=== PATIENT | male | born 1995 | race Caucasian/White ===

== ENCOUNTER 2017-11-06 12:13 | Inpatient (IN) | payer OTHER ==
[~2017-11-06] VITALS: Ht 180.3 cm; Wt 61.7 kg
--- NOTE | 2017-11-08 21:15 | NUR ---
INTAKE ASSESSMENT BP: 131/76, HR:97, RR: 16, SpO2:99%, T:98.1 Pt is in stable condition and able to be admitted on the unit. Unit protocols regarding medications and vital signs Q4H were explained. Pt verbalized understanding. Will continue admission upon arrival on the unit.
[2017-11-08] MEDS ORDERED: MIRALAX 17 GM POWD.PACK PO PRN (22:00)
[2017-11-08] MEDS ORDERED: LORAZEPAM 1 MG TABLET PO PRN ×2 (22:00)
[2017-11-08] MEDS ORDERED: ONDANSETRON 4 MG/2 ML VIAL IM PRN (22:00)
[2017-11-08] MEDS ORDERED: LOPERAMIDE HCL 2 MG CAPSULE PO PRN ×2 (22:00)
[2017-11-08] MEDS ORDERED: ONDANSETRON ODT 4 MG TAB.RAPDIS SL PRN (22:00)
[2017-11-08] MEDS ORDERED: BUPRENORPHINE HCL 2 MG TAB.SUBL SL PRN (22:00)
[2017-11-08] MEDS ORDERED: ACETAMINOPHEN 325 MG TABLET PO PRN (22:00)
[2017-11-08] MEDS ORDERED: MAGNESIUM HYDROXIDE 30 ML LIQUID UDC PO PRN (22:00)
[2017-11-08] MEDS ORDERED: MAG HYDROX/AL HYDROX/SIMETH 30 ML LIQUID UDC PO PRN (22:00)
[2017-11-08] MEDS ORDERED: LORAZEPAM 2 MG/1 ML VIAL IM PRN (22:00)
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
[2017-11-08 22:15] LABS: BASOPHILS % (AUTO) 0.5 % (0.0-2.0); EOSINOPHILS # (AUTO) 0.3 K/uL (0.0-0.7); HEMATOCRIT 35.2 % (36.7-47.1); HEMOGLOBIN 12.1 g/dL (12.5-16.3); LYMPHOCYTES # (AUTO) 3.7 K/uL (20.0-40.0); LYMPHOCYTES % (AUTO) 42.6 % (20.5-51.5); MEAN CORPUSCULAR HEMOGLOBIN 29.5 uug (23.8-33.4); MEAN CORPUSCULAR HGB CONC 34 g/dL (32.5-36.3); MEAN CORPUSCULAR VOLUME 85.7 fL (73.0-96.2); MONOCYTES # (AUTO) 0.7 K/uL (2.0-10.0); MONOCYTES % (AUTO) 8.7 % (0.0-11.0); NEUTROPHILS # (AUTO) 3.8 K/uL (1.8-8.9); NEUTROPHILS % (AUTO) 44.2 % (38.5-71.5); PLATELET COUNT (AUTO) 219 K/uL (152-348); WHITE BLOOD COUNT (AUTO) 8.6 K/uL (3.6-10.2)
[2017-11-08 22:38] LABS: ALANINE AMINOTRANSFERASE 26 U/L (16-63); ALKALINE PHOSPHATASE 77 U/L (50-136); AMYLASE 57 U/L (25-115); ASPARTATE AMINOTRANSFERASE 28 U/L (15-37); BILIRUBIN,TOTAL 1.2 mg/dL (0.2-1.0); CARBON DIOXIDE 31 mmol/L (21-32); CHLORIDE 102 mmol/L (98-107); CREATININE 0.9 mg/dL (0.6-1.3); GLUCOSE 57 mg/dL (74-106); LIPASE 168 U/L (73-393); MAGNESIUM 2.1 mg/dL (1.8-2.4); POTASSIUM 3.6 mmol/L (3.5-5.1); TOTAL PROTEIN, SERUM 7.6 g/dL (6.4-8.2); UREA NITROGEN, BLOOD 24 mg/dL (7-18)
[2017-11-08 22:43] LABS: *AMPHETAMINE, URINE POSITIVE (NEGATIVE); *BARBITURATE, URINE NEGATIVE (NEGATIVE); *CANNABINOID, URINE POSITIVE (NEGATIVE); *COCCAINE, URINE NEGATIVE (NEGATIVE); *OPIATE, URINE POSITIVE (NEGATIVE); *PHENCYCLIDINE SCREEN,URINE NEGATIVE (NEGATIVE)
[2017-11-08 23:00] LABS: ETHANOL < 3 MG/DL (0-0)
[2017-11-08] MEDS: diphenhydrAMINE 50 MG CAPSULE PO PRN (23:09)
[2017-11-08] MEDS: METHOCARBAMOL 750 MG TABLET PO PRN (23:09)
--- NOTE | 2017-11-08 23:09 | NUR ---
PRN ZOFRAN, ATIVAN, ROBAXIN, BENADRYL Pt complains of nausea, anxiety, hot/cold sweats, agitation, restlessness, body aches, and difficulty sleeping PRN Zofran, Ativan, Robaxin and Benadryl administered as ordered. CIWA:11, COWS:9. Will monitor effectiveness.
[2017-11-09] VITALS: BP 109/52
--- NOTE | 2017-11-09 | NUR ---
COWS/CIWA DEFERRED COWS/CIWA deferred d/t pt lying in bed with eyes closed noted to be asleep. Breathing is even and unlabored, safety measures in place. Will monitor.
--- NOTE | 2017-11-09 00:09 | NUR ---
PRN ZOFRAN, ATIVAN, ROBAXIN, BENADRYL REASSESSMENT PRN medications effective. Pt is lying in bed with eyes closed and is noted to be asleep. Breathing is even and unlabored, safety measures in place. Will monitor.
[2017-11-09 00:10] LABS: THYROID STIMULATING HORMONE 0.785 mIU/mL (0.358-3.740)
[2017-11-09] MEDS ORDERED: CARB1DRO7 OP (02:43)
[2017-11-09] MEDS ORDERED: CARB15DR OP (02:43)
[2017-11-09 04:00] VITALS: BP 107/58
--- NOTE | 2017-11-09 04:00 | NUR ---
COWS/CIWA DEFERRED 0400 COWS/CIWA deferred d/t pt lying in bed with eyes closed noted to be asleep. Breathing is even and unlabored, safety measures in place. Will monitor.
--- NOTE | 2017-11-09 07:21 | NUR ---
END OF SHIFT Pt is a 22 year old male patient admitted on 11/08/17 for Benzodiazepine and Opiate withdrawal. He remains alert and oriented x4. He was noted with anxiety, restlessness, hot and cold sweats, body aches, difficulty sleeping, and nausea. Pt currently not on taper but has PRN Subtuex and PRN Ativan available. At 2309 he received PRN Zofran, Robaxin, Ativan, and Benadryl. He slept a total of 7 hrs, Intake: 1180 mL, Void: x2, BM;0, COWS:9, CIWA:11. Breathing even and unlabored, safety measures in place. Endorsed.
--- NOTE | 2017-11-09 07:41 | NUR ---
BEGINNING OF SHIFT Patient endorsement report received, patient is a 22 year old male admitted on 11/08/2017, with admitting Dx: bzo/opiate withdrawal, and substance use of methamphetamine. Patient currently continues under close observation, has PRN medications available for s/sx of withdrawal. Per night club manager patient with last cow score of: 9, and last CIWA score of: 11. Patient slept for 7 hours, and received PRN: Zofran, Robaxin, Ativan, and Benadryl. Patient received in bed with eyes closed respirations even and unlabored, responsive to verbal stimuli, will educate regarding plan of care for the day and medication regimen. Safety measures are in place. call light with in reach, will continue to monitor closely.
[2017-11-09 08:28] VITALS: BP 118/74
[2017-11-09] MEDS ORDERED: TUBERCULIN,PURIF.PROT.DERIV. 5 TU/0.1 ML TEST ID ONE (09:00)
[2017-11-09] MEDS: MULTIVITAMINS,THERAPEUTIC TABLET PO SCH (09:14)
--- NOTE | 2017-11-09 09:24 | NUR ---
COW/CIWA ASSESSMENT PRN ATIVAN/SUBUTEX Patient in bed noted disheveled, unkempt, unshaven, unwashed hair, dirty fingernails, and odorous breath. Patient with avoidant eye contact, flat affect, labile mood. Appears preoccupied, and easily overwhelmed. Patient noted exhibiting the following s/sx of withdrawal: facial flushing, difficulty sitting still, restless legs, enlarged pupils, generalized discomfort, myalgias, arthralgias, moist eyes, nasal congestion, nausea, tremors, irritable, gooseflesh, and increase anxiety. Patient with cow score of; 15, and ciwa score of: 17. MD notified. Patient was administered PRN Subutex 4mg Sl and Ativan 2mg PO for s/sx of withdrawal. Will monitor effectiveness of medication. Will continue to monitor.
--- NOTE | 2017-11-09 09:54 | NUR ---
SUBUTEX REASSESSMENT Medication effective, current COW score of: 15, patient reports less anxiety, will continue to monitor.
--- NOTE | 2017-11-09 10:24 | NUR ---
ATIVAN REASSESSMENT Medication effective, current CIWA score of: 15, decrease in anxiety and agitation, will continue to monitor.
[2017-11-09] MEDS ORDERED: 5 DAY TAPER BUPRENORPHINE -SERENITY PROTOCOL SL PRN (11:30)
[2017-11-09] MEDS ORDERED: 5 DAY TAPER OF LORAZEPAM -SERENITY PROTOCOL PO PRN (11:30)
[2017-11-09 12:00] VITALS: BP 126/84
[2017-11-09] MEDS: LORAZEPAM 1 MG TABLET PO SCH ×3 (13:20→20:47)
[2017-11-09] MEDS: BUPRENORPHINE HCL 2 MG TAB.SUBL SL SCH ×3 (13:21→20:47)
[2017-11-09 16:55] VITALS: BP 122/69
--- NOTE | 2017-11-09 18:54 | NUR ---
END OF SHIFT Patient continues under close observation, admitting Dx: opiate/bzo withdrawal. Patient was started on a 5 day Ativan and 5 day Subutex taper during shift. Medications were administered as ordered. Patient noted isolative during shift, preferred to stay in room. Encourage to socialize with others, and participate in group activities, denies SI/HI. Patient also encouraged to participate in therapy sessions to learn new coping skills to prevent relapse. Patient was noted, disheveled, unkempt, unshaven, unwashed hair, dirty fingernails, and odorous breath, encouraged to self groom and maintain personal area. Patient with avoidant eye contact, flat affect, labile mood. Appears preoccupied, and easily overwhelmed. Encouraged to practice self soothing techniques such as progressive muscle relaxation and encouraged to develop coping skills and utilization of non pharmacological interventions. During the shift patient was noted exhibiting the following s/sx of withdrawal: facial flushing, difficulty sitting still, restless legs, yawning, enlarged pupils, generalized discomfort, myalgias, elevated heart rate, arthralgias, moist eyes, nasal congestion, nausea, tremors, irritable, gooseflesh, and increase anxiety. Patient with last cow score of; 16, and ciwa score of: 17. MD notified. Patient was administered PRN Subutex 4mg Sl and Ativan 2mg PO for s/sx of withdrawal, during shift. Received PPD to left F/A. well tolerated. Noted with poor appetite, Patient encouraged to increase fluid intake, food preferences as tolerated. All needs met and rendered, safety measures in lace. Call light with in reach, endorsed to caustic cresylate shift superintendent nurse all pertinent information was discussed.
--- NOTE | 2017-11-09 19:30 | NUR ---
START OF SHIFT Pt is a 22 y/male admitted on 11/08/17 for benzo and opiate withdrawal. Pt was also using methamphetamine. Pt is on a 5 day Ativan and 5 day Subutex taper that started today, tolerating well. Pt received PRN Ativan and Subutex in the morning before taper started. Last COWS 16 and CIWA 17 during day shift. Upon assessment pt presents with anxiety, restlessness, back pain 5/10, body aches, elevated HR, sweats, enlarged pupils, intermittent goosebumps, stomach cramps, agitation, photosensitivity, sensitivity to sounds, and unkempt room. Medications due. Safety measures in place. Call light within reach. Will continue to monitor.
[2017-11-09 20:00] VITALS: BP 112/80
--- NOTE | 2017-11-09 20:00 | NUR ---
COWS 15 AND CIWA 18 Pt presents with anxiety, restlessness, back pain 5/10, body aches, elevated HR, sweats, enlarged pupils, intermittent goosebumps, stomach cramps, agitation, photosensitivity, sensitivity to sounds, and unkempt room.
[2017-11-09] MEDS: METHOCARBAMOL 750 MG TABLET PO PRN (20:47)
[2017-11-09] MEDS: DICYCLOMINE HCL 20 MG TABLET PO PRN (20:58)
--- NOTE | 2017-11-09 20:58 | NUR ---
PRN ROBAXIN AND BENTYL ADMINISTRATION Pt reports generalized body aches and back ache. Robaxin administered at 2046. Pt complains of stomach cramps with nausea. Refuses Zofran for nausea d/t tolerating fluids and snacks. Bentyl administered at 2057. Safety measures in place. Call light within reach. Will continue to monitor.
--- NOTE | 2017-11-09 21:58 | NUR ---
PRN CLARA AND KERRY REASSESSMENT Pt reports body aches and stomach cramps are now tolerable. Safety measures in place. Call light within reach. Will continue to monitor.
[2017-11-10] VITALS: BP 116/87
--- NOTE | 2017-11-10 | NUR ---
COWS/CIWA DEFERRED Pt laying in bed with eyes closed, COWS/CIWA deferred, to be assessed when pt is awake per orders. Respirations even and unlabored. Safety measures in place. Call light within reach. Will continue to monitor.
[2017-11-10 04:00] VITALS: BP 109/83
--- NOTE | 2017-11-10 07:10 | NUR ---
END OF SHIFT Pt is a 22 y/male admitted on 11/08/17 for benzo and opiate withdrawal. Pt was also using methamphetamine. Pt is on a 5 day Ativan and 5 day Subutex taper that started on 11/09/17, tolerating well. Pt presented with anxiety, restlessness, back pain, body aches, elevated HR, sweats, enlarged pupils, intermittent goosebumps, stomach cramps, nausea, agitation, photosensitivity, sensitivity to sounds, and unkempt room. Scheduled medications and PRN Robaxin and Bentyl administered, effective in S/S of withdrawal AEB CIWA 14 lowered to CIWA 12 during shift. Pt slept 9 hours. Intake 1180 ml, void x 3, stool x 0. Safety measures in place. Call light within reach. Pts needs have been met. Endorsed to day shift nurse. Addendum: 11/10/17 at 0711 by CHRISTI VUONG RN CORRECTION: Scheduled medications and PRN Robaxin and Bentyl administered, effective in S/S of withdrawal as verbalized by pt. Last COWS 15 and CIWA 18.
--- NOTE | 2017-11-10 07:22 | NUR ---
BEGINNING OF SHIFT Patient received in bed with eyes closed respirations even and unlabored, responsive to verbal stimuli. Safety measures are in place. Endorsement report received, from shift mechanic nurse, all pertinent information discussed. Admitting Dx: bzo/opiate withdrawal, and substance use of methamphetamine. Patient currently continues under close observation, Ongoing Ativan and Subutex taper as ordered, scheduled to begin day 2 of taper. Per shift mechanic patient with last cow score of: 15, and last CIWA score of: 18. Patient slept for 9 hours, and received PRN: Bentyl, and Robaxin, per shift mechanic medications effective. Will educate regarding plan of care for the day and medication regimen. Patient slept for 9hours. Safety measures are in place. call light with in reach, will continue to monitor closely.
[2017-11-10 08:10] LABS: HEPATITIS B SURFACE AG Negative (Negative)
[2017-11-10 08:40] VITALS: BP 112/61
[2017-11-10] MEDS: MULTIVITAMINS,THERAPEUTIC TABLET PO SCH (08:45)
[2017-11-10] MEDS: LORAZEPAM 1 MG TABLET PO SCH ×3 (08:45→21:33)
[2017-11-10] MEDS: BUPRENORPHINE HCL 2 MG TAB.SUBL SL SCH ×3 (08:45→21:40)
--- NOTE | 2017-11-10 09:00 | NUR ---
COW/CIWA ASSESSMENT Patient in bed noted with flat affect, labile mood. noted exhibiting the following s/sx of withdrawal: diaphoresis, difficulty sitting still, fidgety, enlarged pupils, clammy skin, facial flushing, bone and joint aches, nasal congestion, moist eyes, abdominal cramps, irritability, anxiety, sensitivity to light and to noise, nausea, generalized discomfort, and emotional volatility. patient with COW score of: 15, and CIWA score of: 19. MD notified. Will continue to monitor.
--- NOTE | 2017-11-10 10:14 | NUR ---
Therapist prompted client to attend group therapy.
[2017-11-10 13:23] VITALS: BP 128/77
--- NOTE | 2017-11-10 13:25 | NUR ---
COW/CIWA ASSESSMENT Patient noted exhibiting the following s/sx of withdrawal: diaphoresis, difficulty sitting still, fidgety, enlarged pupils,elevated heart rate, clammy skin, facial flushing, bone and joint aches, nasal congestion, moist eyes, abdominal cramps, irritability, anxiety, sensitivity to light and to noise, nausea, generalized discomfort, and emotional volatility. patient with COW score of: 16, and CIWA score of: 19. Will continue to monitor.
--- NOTE | 2017-11-10 16:43 | NUR ---
COW/CIWA ASSESSMENT continues to present with the following: diaphoresis, difficulty sitting still, fidgety, enlarged pupils,elevated heart rate, clammy skin, facial flushing, bone and joint aches, nasal congestion, moist eyes, abdominal cramps, irritability, anxiety, sensitivity to light and to noise, nausea, generalized discomfort, and emotional volatility. patient with COW score of: 16, and CIWA score of: 19. Will continue to monitor. safety measures are in place.
[2017-11-10 16:45] VITALS: BP 127/79
--- NOTE | 2017-11-10 19:05 | NUR ---
END OF SHIFT Patient alert and oriented x4, Dx: opiate/bzo withdrawal, continues on 5 day Ativan and 5 day Subutex taper during shift, is currently on day 2 of taper. During shift patient noted exhibiting the following s/sx of withdrawal: diaphoresis, difficulty sitting still, fidgety, enlarged pupils,elevated heart rate, clammy skin, facial flushing, bone and joint aches, nasal congestion, moist eyes, abdominal cramps, irritability, anxiety, sensitivity to light and to noise, nausea, generalized discomfort, and emotional volatility. patient with last COW score of: 15, and last CIWA score of: 19. Received no PRN medications during shift, all scheduled medications were administered as ordered. Patient was noted, disheveled, unkempt, unshaven, unwashed hair, dirty fingernails, and odorous breath, encouraged to self groom and maintain personal area. Patient with avoidant eye contact, flat affect, labile mood. Encouraged to develop coping skills and utilization of non pharmacological interventions. Patient with episode of increase anxiety, was with anxiety, noted heavily crying, body posture tense, noted tightly squeezing water bottle, patient with rapid, heavily breaths, occurred after group therapy, patient was calm and less anxious after speaking privately with therapist, therapist able to calm patient and provide with redirection. Patient encouraged to increase fluid intake, food preferences as tolerated. All needs met and rendered, safety measures in place. Call light with in reach, endorsed to night assistant nurse all pertinent information was discussed. Addendum: 11/10/17 at 1909 by CHRISTEL WEBB LVN ERROR IN CHARTING- WRONG PATIENT, DISREGARD NOTE ABOVE.
--- NOTE | 2017-11-10 19:09 | NUR ---
END OF SHIFT Patient alert and oriented x4, Dx: opiate/bzo withdrawal, continues on 5 day Ativan and 5 day Subutex taper during shift, is currently on day 2 of taper. During shift patient noted exhibiting the following s/sx of withdrawal: diaphoresis, difficulty sitting still, fidgety, enlarged pupils,elevated heart rate, clammy skin, facial flushing, bone and joint aches, nasal congestion, moist eyes, abdominal cramps, irritability, anxiety, sensitivity to light and to noise, nausea, generalized discomfort, and emotional volatility. patient with last COW score of: 15, and last CIWA score of: 19. Received no PRN medications during shift, all scheduled medications were administered as ordered. Patient was noted, disheveled, unkempt, unshaven, unwashed hair, dirty fingernails, and odorous breath, encouraged to self groom and maintain personal area. Patient with avoidant eye contact, flat affect, labile mood. Encouraged to develop coping skills and utilization of non pharmacological interventions. Patient encouraged to increase fluid intake, food preferences as tolerated. All needs met and rendered, safety measures in place. Call light with in reach, endorsed to night order selector nurse all pertinent information was discussed.
--- NOTE | 2017-11-10 19:30 | NUR ---
Start of shift note Received report from day shift nurse. Patient is a 22 year old f admitted for Benzo/Opiate withdrawal. Patient is on 2nd day of his 5 day Subutex and 5 day Ativan taper. Patient did not require PRN medication. Last COWS 16 and CIWA 19. Patient lying in bed with eyes closed. Room dirty and clothes thrown on floor. Patient woke up. Patient presents with flat affect, disheveled, anxious, sweating, abdominal cramping, muscles aches, stuffy nose, sensitive to light/sounds and piloerection. Encourage fluids. Safety measures in place. Call light in reach. Will continue to monitor.
[2017-11-10 20:00] VITALS: BP 114/68
--- NOTE | 2017-11-10 20:00 | NUR ---
COWS and CIWA assessment Patient anxious, sweating, abdominal cramping, stuffy nose, sensitive to light and sounds , piloerection and c/o muscles aches. COWS 16 and CIWA 15.
[2017-11-10] MEDS: METHOCARBAMOL 750 MG TABLET PO PRN (21:32)
--- NOTE | 2017-11-10 21:32 | NUR ---
PRN Robaxin administration Patient c/o muscle aches. Will monitor for effectiveness
--- NOTE | 2017-11-10 22:32 | NUR ---
PRN Robaxin re-assessment Patient states Robaxin helpful and effective. Will continue to monitor.
--- NOTE | 2017-11-11 | NUR ---
COWS and CIWA deferred Patient lying in bed with eyes closed. VS refused. Respiration even and unlabored. Will continue to monitor.
[2017-11-11 04:00] VITALS: BP 103/62
--- NOTE | 2017-11-11 05:09 | NUR ---
COWS and CIWA assessment Patient anxious, restless and c/o body aches. Will monitor for effectiveness . COWS 10 and CIWA 8.
--- NOTE | 2017-11-11 05:10 | NUR ---
PRN Vistaril and Motrin administration Patient c/o anxiety and body aches. Will monitor for effectiveness
[2017-11-11] MEDS: HYDROXYZINE PAMOATE 25 MG CAPSULE PO PRN (05:12)
[2017-11-11] MEDS: IBUPROFEN 600 MG TABLET PO PRN (05:12)
--- NOTE | 2017-11-11 06:12 | NUR ---
PRN Vistaril and Motrin re-assessment Patient lying in bed with eyes closed. Respiration even and unlabored. No facial grimacing. Will continue to monitor
--- NOTE | 2017-11-11 07:05 | NUR ---
End of shift note Patient slept 10 hours. Fluid intake 300 ml. Voided x 1. No BM. Monitored patient throughout shift. Patient presented with flat affect, disheveled, anxious, sweating, abdominal cramping, muscles aches, stuffy nose, sensitive to light and sounds and piloerection . Scheduled medication and taper given as ordered. PRN Robaxin given for body aches. At 0510, patient woke up anxious and c/o body aches. PRN Motrin and Vistaril. Encouraged fluids. Safety measures in place. Call light in reach. Will continue to monitor. Last COWS 10 and CIWA 8 .
--- NOTE | 2017-11-11 07:30 | NUR ---
START OF SHIFT NOTE Received report from night nurse 22 year old male admitted for Benzo, Heroin, Meth withdrawal and continues on 5 Ativan, 5 days Subutex taper tolerating well. Per endorsement patient received PRN Motrin,Vistaril, Robaxin tolerated well, slept for 10 hours and last CIWA-8, COWS-10. Received patient with blunt facial expression, anxious, agitated, bilateral hand tremors, unkempt room, dirty room linens on the floor, racing thoughts. Breathing normal no SOB noted. Skin intact warm and dry to touch. All safety measures in place call light within reach. Will cont to monitor.
[2017-11-11 08:00] VITALS: BP 117/66
[2017-11-11] MEDS ORDERED: BUPRENORPHINE HCL 2 MG TAB.SUBL SL SCH (09:00)
[2017-11-11] MEDS: MULTIVITAMINS,THERAPEUTIC TABLET PO SCH (09:10)
[2017-11-11] MEDS: LORAZEPAM 1 MG TABLET PO SCH ×4 (09:10→21:12)
--- NOTE | 2017-11-11 09:10 | NUR ---
CIWA/COWS ASSESSMENT CIWA-10, COWS-11, Patient presented with anxiety, agitation, restless, diaphoresis, light headed, body aches, sweats, bilateral hand tremors, patient was given schedule medication. Will cont to monitor.
[2017-11-11 12:00] VITALS: BP_SYST 120; BP_SYST 142; BP_DIAS 87; BP_DIAS 91
--- NOTE | 2017-11-11 12:00 | NUR ---
CIWA/COWS ASSESSMENT CIWA-11, COWS-12, Patient continues to exhibited s/s of withdrawal such as anxiety, agitation, restless, chills, diaphoresis, body aches, sweats, bilateral hand tremors, patient continues with his taper. Will cont to monitor.
[2017-11-11] MEDS: BUPRENORPHINE HCL 2 MG TAB.SUBL SL SCH ×2 (14:41→21:12)
[2017-11-11 16:00] VITALS: BP 128/85
--- NOTE | 2017-11-11 16:00 | NUR ---
CIWA/COWS ASSESSMENT CIWA-12, COWS-12, Patient continues to exhibited s/s of withdrawal such as anxiety, agitation, restless, runny nose, tearing eyes, diaphoresis, body aches, sweats, bilateral hand tremors, patient continues with his taper. Will cont to monitor.
--- NOTE | 2017-11-11 19:08 | NUR ---
END OF SHIFT NOTE Gave report to night nurse, 22 year old male patient admitted for Benzo, Heroin, Meth withdrawal and continues with Ativan and Subutex taper tolerated. Patient presented with labile facial expression, anxiety, agitation, restless, muscle spasms, headache, light headed, sweats, bilateral hand tremors. Patient was given schedule medications and did not required any PRN'S. Last CIWA-12, COWS-12. Patient noted attending groups and activities. All safety measures in place, call light within reach. Patient endorse to night nurse in stable condition.
--- NOTE | 2017-11-11 19:30 | NUR ---
START OF SHIFT Pt is a 22 y/o male admitted on 11/08/17 for benzo and opiate withdrawal. Pt was also using methamphetamine. Pt is on a 5 day Ativan and Subutex taper, tolerating well. Last CIWA 12 and COWS 12 and no PRNs administered during day shift. Upon assessment pt presents with anxiety, restlessness, agitation, flushed skin, intermittent sweats, chills, stomach cramps, intermittent nausea, body aches, headache, increased HR, photosensitivity and unkempt room. Medications due. Safety measures in place. Call light within reach. Will continue to monitor.
[2017-11-11 20:00] VITALS: BP 121/82
--- NOTE | 2017-11-11 20:00 | NUR ---
COWS 13 AND CIWA 12 Pt presents with anxiety, restlessness, agitation, flushed skin, intermittent sweats, chills, stomach cramps, intermittent nausea, body aches, headache, increased HR, photosensitivity and unkempt room. Pt requesting smoke break.
[2017-11-11] MEDS ORDERED: TRAZODONE 50 MG TABLET PO ONE (20:45)
[2017-11-11] MEDS: DICYCLOMINE HCL 20 MG TABLET PO PRN (21:12)
[2017-11-11] MEDS: METHOCARBAMOL 750 MG TABLET PO PRN (21:12)
--- NOTE | 2017-11-11 21:12 | NUR ---
PRRajwinder ELIZABETH AND BENTYL ADMINISTRATION Pt reports body aches and stomach cramps. Safety measures in place. Call light within reach. Will continue to monitor.
--- NOTE | 2017-11-11 22:12 | NUR ---
PRN CLARA AND COLEYL REASSESSMENT Pt reports body aches and stomach cramps reduced to tolerable level. Safety measures in place. Call light within reach. Will continue to monitor.
--- NOTE | 2017-11-12 | NUR ---
COWS/CIWA DEFERRED AND VITALS REFUSED Pt laying in bed with eyes closed, COWS/CIWA deferred, to be assessed when pt is awake per orders. Vitals refused. Respirations even and unlabored. Safety measures in place. Call light within reach. Will continue to monitor.
--- NOTE | 2017-11-12 07:01 | NUR ---
END OF SHIFT Pt is a 22 y/o male admitted on 11/08/17 for benzo and opiate withdrawal. Pt was also using methamphetamine. Pt is on a 5 day Ativan and Subutex taper, tolerating well. Pt presented with anxiety, restlessness, agitation, flushed skin, intermittent sweats, chills, stomach cramps, intermittent nausea, body aches, headache, increased HR, photosensitivity and unkempt room. Scheduled medications and PRN Robaxin and Bentyl administered, effective in S/S of withdrawal as verbalized by pt. Last COWS 13 and CIWA 12. Pt slept 7 hours. Intake 1300 ml, void x 2, stool x 0. Safety measures in place. Call light within reach. Pts needs have been met. Endorsed to day shift nurse.
--- NOTE | 2017-11-12 07:36 | NUR ---
START OF SHIFT NOTE Received report from night nurse 22 year old male admitted for Benzo, Heroin, Meth withdrawal and continues on 5 Ativan, 5 days Subutex taper tolerating well. Per endorsement patient received PRN Benadryl,Robaxin tolerated well, slept for 7 hours and last CIWA-12, COWS-13. Received patient with blunt facial expression, anxious, agitated, sweats, chills, bilateral hand tremors, unkempt room, blocking thoughts. Breathing normal no SOB noted. Skin intact warm and dry to touch. All safety measures in place call light within reach. Will cont to monitor.
[2017-11-12 08:00] VITALS: BP 131/85
[2017-11-12] MEDS: BUPRENORPHINE HCL 2 MG TAB.SUBL SL SCH ×3 (08:35→21:45)
[2017-11-12] MEDS: MULTIVITAMINS,THERAPEUTIC TABLET PO SCH (08:35)
[2017-11-12] MEDS: LORAZEPAM 1 MG TABLET PO SCH ×3 (08:35→21:45)
--- NOTE | 2017-11-12 08:35 | NUR ---
CIWA/COWS ASSESSMENT Patient presented with blunt facial expression, anxiety, agitation, restless, diaphoresis, light headed, body aches, sweats, bilateral hand tremors, CIWA-11, COWS-11 noted. patient received his schedule medication. Will cont to monitor.
[2017-11-12 12:00] VITALS: BP 136/93
--- NOTE | 2017-11-12 12:00 | NUR ---
CIWA/COWS ASSESSMENT Patient continues to presents with anxiety, agitation, restless, diaphoresis, light headed, body aches, sweats, runny nose, bilateral hand tremors, CIWA-10, COWS-10 noted. Patient is due for scheduled medications. Will cont to monitor.
--- NOTE | 2017-11-12 12:43 | NUR ---
Therapist prompted client to attend group therapy sessions.
[2017-11-12 16:00] VITALS: BP 130/86
--- NOTE | 2017-11-12 16:00 | NUR ---
CIWA/COWS ASSESSMENT Patient is anxious, agitated, sweating, runny nose, sensitive to light and sound, bilateral hand tremors, CIWA-11, COWS-11 noted. Patient continues with his taper. Will cont to monitor.
--- NOTE | 2017-11-12 19:06 | NUR ---
END OF SHIFT NOTE Gave report to night nurse, 22 year old male patient admitted for Benzo, Heroin, Meth withdrawal and continues with Ativan and Subutex taper tolerated well. Patient presented with sad facial expression, anhedonia, anxiety, agitation, restless, sweats, emotional volatility, general body discomfort, bilateral hand tremors. Patient was given schedule medications and did not received any PRN'S. Patient noted avoidant eye contact, unkempt, odors breath, disheveled. Last , . Encourage patient to attend groups and activities to learn new coping skills. Patient noted attending groups and activities. Encourage PO fluids as tolerated. All needs attended. All safety measures in place, call light within reach. Patient endorse to night nurse in stable condition. Addendum: 11/12/17 at 1911 by KRISTINE LUNA LVN CORRECTION-
--- NOTE | 2017-11-12 19:30 | NUR ---
START OF SHIFT Pt is a 22 y/o male admitted on 11/08/17 for benzo and opiate withdrawal. Pt was also using methamphetamine. Pt is on a 5 day Subutex and 5 day Ativan taper that started on 11/09/17, tolerating well. Last COWS 11 and CIWA 11 and no PRNS administered during day shift. Upon assessment pt presents with anxiety, restlessness, body aches, stomach cramps, increased HR, sweats, difficulty falling and staying asleep, flushed skin, and elevated BP. Medications due. Safety measures in place. Call light within reach. Will continue to monitor.
[2017-11-12 20:00] VITALS: BP 141/86
--- NOTE | 2017-11-12 20:00 | NUR ---
COWS 11 AND CIWA 11 Pt presents with anxiety, restlessness, body aches, stomach cramps, increased HR, sweats, difficulty falling and staying asleep, flushed skin, and elevated BP. Pt going on frequent smoke breaks.
[2017-11-12] MEDS: DICYCLOMINE HCL 20 MG TABLET PO PRN (21:45)
[2017-11-12] MEDS: METHOCARBAMOL 750 MG TABLET PO PRN (21:45)
--- NOTE | 2017-11-12 21:45 | NUR ---
PRN ROBAXIN AND BENTYL ADMINISTRATION Pt reports body aches 6/10 and stomach cramps. Safety measures in place. Call light within reach. Will continue to monitor.
[2017-11-12] MEDS ORDERED: TRAZODONE 50 MG TABLET PO SCH (22:45)
--- NOTE | 2017-11-12 22:45 | NUR ---
PRN ROBAXIN AND BENTYL REASSESSMENT Pt reports body aches and stomach cramps reduced to a tolerable level. Safety measures in place. Call light within reach. Will continue to monitor.
[2017-11-13] VITALS: BP 138/85
--- NOTE | 2017-11-13 | NUR ---
COWS 11 AND CIWA 11 Pt presents with anxiety, restlessness, body aches, stomach cramps, increased HR, sweats, difficulty falling asleep, flushed skin. Pt going for smoke breaks.
[2017-11-13] MEDS: diphenhydrAMINE 50 MG CAPSULE PO PRN ×2 (01:09→21:05)
[2017-11-13] MEDS: HYDROXYZINE PAMOATE 25 MG CAPSULE PO PRN ×2 (01:09→17:49)
--- NOTE | 2017-11-13 01:09 | NUR ---
ANTONIO NEGRETE AND VISTARIL ADMINISTRATION Pt requests sleeping aid and presents with anxiety. Pt reports trouble sleeping "because my mind is racing." Safety measures in place. Call light within reach. Will continue to monitor.
--- NOTE | 2017-11-13 02:09 | NUR ---
PRN BENADRYL AND VISTARIL REASSESSMENT Pt laying in bed with eyes closed, medications noted effective. Respirations even and unlabored. Safety measures in place. Call light within reach. Will continue to monitor.
--- NOTE | 2017-11-13 07:02 | NUR ---
END OF SHIFT Pt is a 22 y/o male admitted on 11/08/17 for benzo and opiate withdrawal. Pt was also using methamphetamine. Pt is on a 5 day Subutex and 5 day Ativan taper that started on 11/09/17, tolerating well. Pt presented with anxiety, restlessness, body aches, stomach cramps, increased HR, sweats, difficulty falling and staying asleep, flushed skin, and elevated BP. Scheduled medications and PRN Robaxin, Bentyl, Benadryl and Vistaril administered, effective in S/S of withdrawal as verbalized by pt. Last COWS 11 and CIWA 11. Pt slept 6 hours. Intake 2011 ml, void x 5, stool x 2. Safety measures in place. Call light within reach. Pts needs have been met. Endorsed to day shift nurse.
--- NOTE | 2017-11-13 07:58 | NUR ---
START OF SHIFT NOTE Received report from night nurse 22 year old male admitted for Benzo, Heroin, Meth withdrawal and continues on 5 Ativan, 5 days Subutex taper tolerating well. Per endorsement patient received PRN Benadryl,Robaxin,Bentyl, Vistaril tolerated well, slept for 6 hours and last CIWA-11, COWS-11. Received patient alert awake oriented x4, anxious, agitated, sweats, chills, bilateral hand tremors. Breathing normal no SOB noted. Skin intact warm and dry to touch. All safety measures in place call light within reach. Will cont to monitor.
[2017-11-13 08:00] VITALS: BP 119/63
[2017-11-13] MEDS: MULTIVITAMINS,THERAPEUTIC TABLET PO SCH (09:00)
[2017-11-13] MEDS: LORAZEPAM 1 MG TABLET PO SCH ×2 (09:00→20:33)
[2017-11-13] MEDS ORDERED: BUPRENORPHINE HCL 2 MG TAB.SUBL SL SCH (09:00)
--- NOTE | 2017-11-13 09:00 | NUR ---
CIWA/COWS ASSESSMENT Patient presented with blunt facial expression, anxiety, agitation, restless, diaphoresis, chills, light headed, sweats, stuffy nose, bilateral hand tremors, CIWA-12, COWS-12 noted. Patient received his schedule medication. Will cont to monitor.
[2017-11-13 12:00] VITALS: BP 108/63
--- NOTE | 2017-11-13 12:00 | NUR ---
CIWA/COWS ASSESSMENT Patient continues to presents with anxiety, agitation, restless, sweats, light headed, body aches, sweats, stuffy nose, bilateral hand tremors, CIWA-11, COWS-11 noted. Will cont to monitor.
--- NOTE | 2017-11-13 14:53 | NUR ---
Therapist prompted client to attend group therapy.
[2017-11-13 16:00] VITALS: BP 142/86
--- NOTE | 2017-11-13 16:00 | NUR ---
CIWA/COWS ASSESSMENT CIWA-10, COWS-10. Patient reported increased in anxiety, agitation, restless, sweats, diaphoresis stuffy nose, bilateral hand tremors, Will cont to monitor.
--- NOTE | 2017-11-13 17:51 | NUR ---
PRN Vistaril Pt reports feeling anxious and restless. PRN Vistaril administered.
--- NOTE | 2017-11-13 18:51 | NUR ---
VISTARIL REASSESSMENT Per patient Vistaril was effective feeling less anxious and agitated.
--- NOTE | 2017-11-13 19:10 | NUR ---
END OF SHIFT NOTE Gave report to night nurse, 22 year old male patient admitted for Benzo, Heroin, Meth withdrawal and continues with Ativan and Subutex taper tolerated well. Patient presented with labile facial expression, anhedonia, anxiety, agitation, restless, sweats, emotional volatility, general body discomfort, bilateral hand tremors. Patient was given schedule medications and PRN Vistaril 25mg PO noted to be effective. Last CIWA-10, COWS-10. Encourage patient to attend groups and activities to learn new coping skills. Patient noted attending groups and activities. Encourage PO fluids as tolerated. All needs attended. All safety measures in place, call light within reach. Patient endorse to night nurse in stable condition.
--- NOTE | 2017-11-13 19:15 | NUR ---
Start Of Shift Patient is a 22 yr old male who was admitted to [facility] on 11/08/17 for a medically supervised withdrawal from Benzodiazepines ( Xanax) and Opiates ( heroin) and he was also using Methamphetamine. He continues on a 5 day Subutex 5 day Ativan taper. PRN Vistaril was given on day shift, last COWS 10 and CIWA 10. Currently patient is in AA meeting in Rec room. Will continue to follow MD plan of care and offer support as needed.
[2017-11-13 20:00] VITALS: BP 136/77
[2017-11-13] MEDS: DICYCLOMINE HCL 20 MG TABLET PO PRN (20:33)
[2017-11-13] MEDS: IBUPROFEN 600 MG TABLET PO PRN (20:33)
--- NOTE | 2017-11-13 20:35 | NUR ---
PRN Bentyl given for C/O stomach spasm Motrin 600mg PO given for generalized pain 5/10
[2017-11-13] MEDS ORDERED: TRAZODONE 50 MG TABLET PO ONE (21:00)
--- NOTE | 2017-11-13 21:00 | NUR ---
COWS 11 CIWA 12 Withdrawal symptoms present as generalized body aches, restlessness, tachycardia, runny nose, difficulty thinking clearly and stomach spasms. Scheduled Ativan 1mg PO given and PRN Bentyl 20mg, Motrin 600mg, Robaxin 750mg, Trazodone 50mg and Benadryl 50mg PO given
[2017-11-13] MEDS: METHOCARBAMOL 750 MG TABLET PO PRN (21:05)
--- NOTE | 2017-11-13 21:05 | NUR ---
PRN Medications Trazodone 50mg PO given for sleep Robaxin 750 mg PO given for generalized body aches Benadryl 50mg PO given for sleep aid per request
[2017-11-13] MEDS ORDERED: TRAZODONE 50 MG TABLET ONE (21:29)
--- NOTE | 2017-11-13 21:35 | NUR ---
PRN Reassess Patient states Bentyl 20mg PO effective for stomach spasms Motrin 600mg PO mildly effective for pain
--- NOTE | 2017-11-13 22:05 | NUR ---
PRN Reassess patient is sound asleep, breathing even and unlabored Trazodone, Benadryl and Robaxin effective
--- NOTE | 2017-11-14 | NUR ---
COWS/CIWA COWS/CIWA/VITALS deferred per patient request not to be woken up through the night. Breathing even and unlabored, RR 14, call light within reach.
--- NOTE | 2017-11-14 04:00 | NUR ---
COWS/CIWA COWS/CIWA/VITALS deferred per patient request not to be woken up through the night. Breathing even and unlabored, RR 14, call light within reach.
--- NOTE | 2017-11-14 06:56 | NUR ---
End Of Shift: Patient is a 22 yr old male who was admitted to [facility] on 11/08/17 for a medically supervised withdrawal from Benzodiazepines ( Xanax) and Opiates ( Heroin IV) and was also using Methamphetamines. He has completed a 5 day Subutex and 5 day Ativan taper. PRN medications given on PM shift: Bentyl for stomach spasms, Motrin and Robaxin for generalized body aches, Benadryl and Trazodone for sleep. Withdrawal symptoms include restlessness, increased anxiety, tachycardia, difficulty thinking clearly and general body aches and spasms. He had a fluid intake of 500ml, 2voids and 0 BM, last COWS 11 and CIWA 12 @ 8pm and he slept for 9 hours. Continue to follow MD plan of care and offer support as needed. Endorsed to day shift nurse
[2017-11-14 07:17] LABS: BASOPHILS # (AUTO) 0.1 K/uL (0.0-8.0); BASOPHILS % (AUTO) 1.2 % (0.0-2.0); EOSINOPHILS # (AUTO) 0.7 K/uL (0.0-0.7); EOSINOPHILS % (AUTO) 5.7 % (0.0-7.0); HEMATOCRIT 34.9 % (36.7-47.1); HEMOGLOBIN 11.8 g/dL (12.5-16.3); LYMPHOCYTES # (AUTO) 5.6 K/uL (20.0-40.0); LYMPHOCYTES % (AUTO) 47.8 % (20.5-51.5); MEAN CORPUSCULAR HEMOGLOBIN 29.5 uug (23.8-33.4); MEAN CORPUSCULAR HGB CONC 34 g/dL (32.5-36.3); MEAN CORPUSCULAR VOLUME 87.6 fL (73.0-96.2); MONOCYTES # (AUTO) 0.9 K/uL (2.0-10.0); NEUTROPHILS # (AUTO) 4.3 K/uL (1.8-8.9); NEUTROPHILS % (AUTO) 37.3 % (38.5-71.5); PLATELET COUNT (AUTO) 220 K/uL (152-348); RED BLOOD CELL COUNT(AUTO) 3.99 MIL/uL (4.06-5.63); WHITE BLOOD COUNT (AUTO) 11.7 K/uL (3.6-10.2)
--- NOTE | 2017-11-14 07:30 | NUR ---
START OF SHIFT NOTE Received report from night nurse 22 year old male admitted for Benzo, Heroin, Meth withdrawal and completed his 5 Ativan, 5 days Subutex taper tolerated well. Per endorsement patient received PRN Benadryl, Robaxin,Bentyl, Motrin, Trazodone, Benadryl tolerated well, slept for 9 hours and last CIWA-12, COWS-11. Received patient alert awake oriented x4, sad facial expression, clothes are on the floor, empty bottles on the floor, anxious, agitated, sweats, chills, bilateral hand tremors. Breathing normal no SOB noted. Skin intact warm and dry to touch. All safety measures in place call light within reach. Will cont to monitor.
[2017-11-14 08:00] VITALS: BP 129/73
[2017-11-14 08:00] LABS: ALANINE AMINOTRANSFERASE 57 U/L (16-63); ALKALINE PHOSPHATASE 58 U/L (50-136); ASPARTATE AMINOTRANSFERASE 64 U/L (15-37); BILIRUBIN,TOTAL 0.4 mg/dL (0.2-1.0); CARBON DIOXIDE 28 mmol/L (21-32); CHLORIDE 106 mmol/L (98-107); CREATININE 0.7 mg/dL (0.6-1.3); GLUCOSE 88 mg/dL (74-106); POTASSIUM 4.2 mmol/L (3.5-5.1); TOTAL PROTEIN, SERUM 6.7 g/dL (6.4-8.2); UREA NITROGEN, BLOOD 11 mg/dL (7-18)
--- NOTE | 2017-11-14 08:00 | NUR ---
CIWA/COWS ASSESSMENT Patient presented with sad facial expression, anxiety, agitation, restless, light headed, sweats, stuffy nose, bilateral hand tremors, CIWA-11, COWS-10 noted. Patient received his schedule medication. Will cont to monitor.
[2017-11-14] MEDS: MULTIVITAMINS,THERAPEUTIC TABLET PO SCH (08:18)
[2017-11-14 12:00] VITALS: BP 132/80
--- NOTE | 2017-11-14 12:00 | NUR ---
CIWA/COWS ASSESSMENT Patient continues to present with anxiety, agitation, restless, stuffy nose, increased in fatigue, bilateral hand tremors, CIWA-9, COWS-9 noted. Will cont to monitor.
[2017-11-14] MEDS: HYDROXYZINE PAMOATE 25 MG CAPSULE PO PRN ×2 (12:39→20:11)
[2017-11-14] MEDS: IBUPROFEN 600 MG TABLET PO PRN ×2 (12:39→20:11)
--- NOTE | 2017-11-14 12:39 | NUR ---
PRN MEDICATIONS Patient is c/o increased in anxiety, agitation, body aches 5/10. Patient was given PRN Motrin 600mg PO and Vistaril 25mg PO as ordered. Will cont to monitor and reassess.
--- NOTE | 2017-11-14 13:22 | NUR ---
Therapist prompted client to attend group counseling sessions.
--- NOTE | 2017-11-14 13:39 | NUR ---
PRN REASSESSMENT Per patient body aches lower to 2/10, and anxiety and agitation subsided.
[2017-11-14 16:00] VITALS: BP 133/83
--- NOTE | 2017-11-14 16:00 | NUR ---
CIWA/COWS ASSESSMENT Patient continues to presented with anxiety, agitation, restless, stuffy nose, increased in fatigue, bilateral hand tremors, CIWA-7, COWS-7 noted. Will cont to monitor.
--- NOTE | 2017-11-14 19:07 | NUR ---
END OF SHIFT NOTE Gave report to night nurse, 22 year old male patient admitted for Benzo, Heroin, Meth withdrawal and completed his Ativan and Subutex taper tolerated well. Patient presented with sad facial expression, anhedonia, anxiety, agitation, fatigue, emotional volatility. Patient was given schedule medications and PRN Vistaril 25mg PO, Motrin 600mg PO noted to be effective. Last CIWA-7, COWS-7. Encourage PO fluids as tolerated. All needs attended. All safety measures in place, call light within reach. Patient endorse to night nurse in stable condition to continues with plan of care.
--- NOTE | 2017-11-14 19:10 | NUR ---
Start of shift note Received report from day shift nurse. Pt is a 22 yo male, A+Ox4, presenting to [facility] for medically supervised Benzo/Opiate withdrawal. Pt was also using Methamphetamine. Pt noted with anxiety, body aches, stomach ache, restlessness, and agitation. Pt has HX of anxiety, depression, and psychosis which will be monitored during shift. Pt has completed 5 day Subutex and 5 day Ativan tapers, tolerated well, and is due for discharge tomorrow. Respirations even and unlabored. Will continue to monitor.
--- NOTE | 2017-11-14 20:10 | NUR ---
COWS and CIWA Assessment COWS: 8 and CIWA: 7. Pt noted with pulse 108, sweat n brow, chills, restlessness, enlarged pupils, mild diffuse discomfort, stomach cramps, anxiety, agitation, and mild nausea. Respirations even and unlabored. Will continue to monitor.
[2017-11-14 20:11] VITALS: BP 139/83
[2017-11-14] MEDS: DICYCLOMINE HCL 20 MG TABLET PO PRN (20:11)
--- NOTE | 2017-11-14 20:11 | NUR ---
PRN Bentyl, Motrin, and Vistaril Pt c/o generalized body aches 5/10, anxiety, and stomach cramps. PRN Bentyl, Motrin, and Vistaril given and tolerated well. Will reassess within 1 HR. Will continue to monitor.
[2017-11-14] MEDS ORDERED: TRAZ-213 PO (20:53)
[2017-11-14] MEDS ORDERED: HYDR-3895 PO (20:53)
[2017-11-14] MEDS ORDERED: IBUP-1955 PO (20:53)
[2017-11-14] MEDS ORDERED: METH-406 PO (20:53)
[2017-11-14] MEDS ORDERED: DIPH50CA37 PO (20:53)
[2017-11-14] MEDS ORDERED: DICY20TA28 PO (20:53)
--- NOTE | 2017-11-14 21:05 | NUR ---
PRN Bentyl. Motrin, and Vistaril Reassessment Medications effective. Pt expresses reduction of general body pain to 2/10, reduction of anxiety, and reduction of stomach cramping. No s/s of ASE noted at this time. Respirations even and unlabored. Will continue to monitor.
[2017-11-14] MEDS ORDERED: TRAZODONE 50 MG TABLET PO ONE (21:45)
--- NOTE | 2017-11-14 21:53 | NUR ---
PRN Trazodone Pt c/o inability to sleep and requested for PRN Trazodone. Medication given and tolerated well. Will reassess within 1 HR. Will continue to monitor.
--- NOTE | 2017-11-14 22:45 | NUR ---
PRN Trazodone Reassessment Medication ineffective. Pt continues to be restless and decided to go smoke on smoking patio. No s/s of ASE noted at this time. Respirations even and unlabored. Will continue to monitor.
[2017-11-15] MEDS: diphenhydrAMINE 50 MG CAPSULE PO PRN (00:07)
--- NOTE | 2017-11-15 00:10 | NUR ---
PRRajwinder Benadrybryce Pt c/o inability to sleep and requested for PRN Benadryl. Medication given and tolerated well. Respirations even and unlabored. Will continue to monitor. Addendum: 11/15/17 at 0012 by TIERRA MULLINS LVN Will reassess within 1 HR.
[2017-11-15 00:13] VITALS: BP 132/77
--- NOTE | 2017-11-15 00:13 | NUR ---
COWS and CIWA Assessment COWS: 6 and CIWA: 5. Pt noted with pulse 101, chills, sweat on brow, restlessness, enlarged pupils, anxiety, and agitation. Respirations even and unlabored. Will continue to monitor.
--- NOTE | 2017-11-15 00:47 | NUR ---
PRN Benadryl Reassessment Medication effective. Pt is resting well in bed. No s/s of ASE noted at this time. Respirations even and unlabored. Will continue to monitor.
[2017-11-15] MEDS: DICYCLOMINE HCL 20 MG TABLET PO PRN ×2 (02:31→08:40)
[2017-11-15] MEDS: IBUPROFEN 600 MG TABLET PO PRN ×2 (02:31→08:40)
[2017-11-15] MEDS: HYDROXYZINE PAMOATE 25 MG CAPSULE PO PRN ×2 (02:31→08:40)
--- NOTE | 2017-11-15 02:31 | NUR ---
PRN Bentyl, Motrin, and Vistaril Pt c/o stomach cramps, generalized body aches, and anxiety and requested for PRN Bentyl, Motrin, and Vistaril. Medications given and tolerated well. Will reassess within 1 HR. Will continue to monitor.
--- NOTE | 2017-11-15 03:30 | NUR ---
PRN Bentyl, Motrin, and Vistaril Reassessment Pt expresses reduction of stomach cramps, general body aches, and anxiety. No s/s of ASE noted at this time. Respirations even and unlabored. Will continue to monitor.
--- NOTE | 2017-11-15 04:01 | NUR ---
PRN Maalox Pt c/o heartburn and requested for PRN Maalox. Medication given and tolerated well. Will reassess within 1 HR. Will continue to monitor.
[2017-11-15 04:10] VITALS: BP 128/78
--- NOTE | 2017-11-15 04:10 | NUR ---
COWS and CIWA Assessment COWS: 5 and CIWA: 5. Pt noted with pulse 89, sweat on brow, chills, restlessness, enlarged pupils, heartburn, anxiety, and agitation. Respirations even and unlabored. Will continue to monitor.
--- NOTE | 2017-11-15 04:45 | NUR ---
PRN Maalox Reassessment Medication effective. Pt expresses reduction of heartburn. No s/s of ASE noted at this time. Respirations even and unlabored. Will continue to monitor.
--- NOTE | 2017-11-15 07:00 | NUR ---
End of shift note Pt was continuously noted with restlessness, anxiety, agitation, stomach cramps, and general body aches. Pt remained in room for majority of shift except to get food from kitchen, and to go smoke on smoking patio. Pt remained cooperative and compliant with all aspects of treatment. Pt was given PRN Bentyl, Motrin, and Vistaril @2010 & @0231, PRN Trazodone and @2153, and PRN Benadryl @0010 and PRN Maalox @0401. Pt has completed 5 day Subutex and 5 day Ativan tapers, tolerated well, and is due for discharge today. Pt slept for a total of 1 HR. Last COWS: 5 and Last CIWA: 5 @0410. Respirations even and unlabored. Will endorse to day shift nurse.
--- NOTE | 2017-11-15 07:45 | NUR ---
START OF SHIFT Endorse rcvd from ongoing nurse, PRN Motrin 600mg PO for generalized body aches, Vistaril 25mg PO for anxiety, Benadryl 50mg PO for insomnia, client slept 1 hrs. Last CIWA 5 @ 0400. Client is in room, a/o x 4, client presents with anxiety, flat affect. He reports felling anxious, myalgia on lower extremities, and stomach cramps. Cleit competed 5 day Ativan / 5 day Subutex. Client is schedule for discharge this afternoon. Call light within reach. Will continue to monitor.
[2017-11-15 08:27] VITALS: BP 122/72
[2017-11-15] MEDS: MULTIVITAMINS,THERAPEUTIC TABLET PO SCH (08:37)
--- NOTE | 2017-11-15 08:40 | NUR ---
PRN Robaxin 750mg PO for myalgia on lower back, Vistari 25mg PO for anxiety, and Bentyl 20mg PO for abd spasms. Call light within reach.
--- NOTE | 2017-11-15 09:40 | NUR ---
Reassess PRN Robaxin 750mg, Vistari 25mg, and Bentyl 20mg, reports slight relief from myalgia, anxiety and abdominal spasms.
[2017-11-15 12:25] VITALS: BP 125/79
--- NOTE | 2017-11-15 13:56 | NUR ---
Discharge Note Client discharged in stable condition with all valuable, belongings and prescription. Client denies SI/HI. To home via private car.
== END 2017-11-15 13:56 | disposition home or self-care (01) | DRG 895 ==
LOC: SRC 11-08 20:51
PROVIDERS: ADMIT Family Medicine Addiction Medicine; ATTEND Family Medicine Addiction Medicine
PROC: HZ2ZZZZ Detoxification Services for Substance Abuse Treatment (ICD-10-PCS; principal; 2017-11-08)
PROC: HZ41ZZZ Group Counseling for Substance Abuse Treatment, Behavioral (ICD-10-PCS; 2017-11-09)
PROC: HZ31ZZZ Individual Counseling for Substance Abuse Treatment, Behavioral (ICD-10-PCS; 2017-11-10)
DX: F11.23 Opioid dependence with withdrawal (principal); F12.10 Cannabis abuse, uncomplicated; F13.239 Sedative, hypnotic or anxiolytic dependence with withdrawal, unspecified; F15.23 Other stimulant dependence with withdrawal; F17.210 Nicotine dependence, cigarettes, uncomplicated; F41.9 Anxiety disorder, unspecified; F32.9 Major depressive disorder, single episode, unspecified; E86.0 Dehydration; D64.9 Anemia, unspecified
CPT/HCPCS: 36415; 70030-TC; 80307; 80324; 80346; 80349; 80361; 83690; 83735; 84443; 85025; 86580; 86592; 86705; 86803; 87340; 87806; A4663; G0480; Q0162; Q0163